=== PATIENT | male | born 1935 | race African-American/Black ===

== ENCOUNTER 2017-07-02 17:40 | Inpatient (IN) | payer OTHER ==
[~2017-07-02] VITALS: Ht 160 cm; Wt 40.9 kg
--- NOTE | ~2017-07-02 | EKG ---
[address] [address] ELECTROCARDIOGRAM REPORT Name: FRANCIA MERRILL R Room #: 435-P ADM IN M.R.#: [id number] Admission: 07/02/17 Attend Phys: Bebeto Brown MD Discharge: Date of : 37 Report #: [id number] THIS REPORT FOR: //name// [facility] ED Test Date: 2017-07-02 Test Time: 19:08:02 Pat Name: FRANCIA MERRILL Department: Room: [facility] Gender: M Unit Aid: SCOTTIE : 1935 Requested By: Lakeisha Oglesby Order Number: [id number] MD: Yair Barron Measurements Intervals [place] Rate: 92 P: 49 [place]: 123 QRS: 51 QRSD: 75 T: -83 QT: 372 QTc: 461 Interpretive Statements Sinus rhythm Atrial premature complex Abnormal R-wave progression, early transition Borderline repolarization abnormality Compared to ECG 05/20/2016 18:39:17 Atrial premature complex(es) now present Electronically Signed On 07-02-2017 21:40:51 STAND UP FORKLIFT OPERATOR by Yair Barron [email or web address] <ELECTRONICALLY SIGNED> By: aYir Barron MD 07/02/17 2140 07 07 Yair Barron MD /EPI
[~2017-07-02 17:40] MED LIST: ARICEPT 5 MG TAB5 MG PO; ARICEPT10 M1 PO; ASPIR 8181 MG PO; ASPIRIN81 M2 PO; ATORVASTATIN CA40 MG; ATORVASTATIN CA40 MG PO; FLOMAX0.4 MG PO; IRON325 PO; MELATONIN3 MG PO; METFORMIN HCL500 MG PO; NOVOLOG100 UNIT/1 SUBQ; RISPERDAL0.25 MG PO; TYLENOL325 MG PO; VITAMIN B-1100 M1 PO
[2017-07-02 17:41] VITALS: BP 121/75
[2017-07-02 18:00] LABS: HEMATOCRIT 45.7 % (42.0-52.0); HEMOGLOBIN 14.4 gm/dL (14.0-18.0); MCH 29.2 pg (26.0-34.0); MCHC 31.5 g/dL (28.0-37.0); MCV 92.7 fL (80.0-100.0); PLATELET COUNT 198 thou/uL (150-400); RBC 4.93 mil/uL (4.50-6.00); RDW 15.5 % (10.5-14.5); WBC 13.1 thou/uL (4.0-11.0)
[2017-07-02 18:04] LABS: MANUAL DIFF YES
[2017-07-02 18:05] LABS: URINE BLOOD 2+ (Negative); URINE COLOR YELLOW; URINE GLUCOSE-RANDOM* 1+ (Negative); URINE KETONES 1+ (Negative); URINE NITRITE NEGATIVE (Negative); URINE PROTEIN (DIPSTICK) TRACE (Negative); URINE SPECIFIC GRAVITY 1.025 (1.005-1.035); URINE UROBILINOGEN 0.2 E.U./dl (0.2-1.0)
[2017-07-02 18:09] LABS: ANION GAP 13 mmol/L (7-16); BUN 36 mg/dL (7-18); CALCIUM 10.4 mg/dL (8.5-10.1); CHLORIDE 120 mmol/L (98-107); CO2 22 mmol/L (21-32); CREATININE 1.8 mg/dL (0.7-1.3); GLUCOSE 351 mg/dL (74-106); POTASSIUM 5.2 mmol/L (3.5-5.1); SODIUM 155 mmol/L (136-145)
[2017-07-02 18:09] LABS: URINE BILIRUBIN NEGATIVE (Negative)
[2017-07-02 18:12] LABS: AMORPHOUS URATES Few /LPF (None Seen); CASTS None Seen /LPF (None Seen); SQUAMOUS None Seen /LPF (0-3); URINE WBC 0-5 Rare /HPF (0-5)
[2017-07-02 18:18] LABS: ALBUMIN 2.9 g/dL (3.4-5.0); ALKALINE PHOSPHATASE 162 U/L (46-116); SGOT 20 U/L (15-37); SGPT 10 U/L (30-65); TOTAL BILIRUBIN 0.4 mg/dL (<0.1-1.0); TOTAL PROTEIN 8.4 g/dL (6.4-8.2); TROPONIN-I < 0.04 ng/mL (<0.06)
[2017-07-02 18:22] LABS: TOTAL CELL COUNT 100
[2017-07-02 18:23] LABS: ABSOLUTE NEUTROPHILS 10.7 thou/uL (1.4-8.2)
[2017-07-02 19:32] VITALS: BP 132/74
[2017-07-02 20:20] VITALS: BP 118/70
[2017-07-02] MEDS ORDERED: DEPAKOTE ER500 MG PO (20:56)
[2017-07-02] MEDS ORDERED: LEVEMIR SUBQ (20:57)
[2017-07-02] MEDS ORDERED: REMERON15 MG PO (20:58)
[2017-07-02] MEDS ORDERED: NAMENDA 10 MG T10 MG PO (20:58)
[2017-07-02] MEDS ORDERED: NYAMYC15 GM PO (20:59)
[2017-07-02] MEDS ORDERED: PROVERA10 MG PO (20:59)
[2017-07-03 03:07] VITALS: BP 138/78
[2017-07-03 08:00] VITALS: BP 152/42
[2017-07-03 15:12] LABS: CALCIUM 9.1 mg/dL (8.5-10.1); CREATININE 1.2 mg/dL (0.7-1.3)
[2017-07-03 15:13] LABS: POTASSIUM 3.2 mmol/L (3.5-5.1)
[2017-07-03 16:00] VITALS: BP 121/83
[2017-07-03 20:09] VITALS: BP 127/62
[2017-07-04 03:59] VITALS: BP 144/98
[2017-07-04 08:00] VITALS: BP 139/89
[2017-07-04 11:59] LABS: CALCIUM 8.9 mg/dL (8.5-10.1); CREATININE 1.1 mg/dL (0.7-1.3); MAGNESIUM 2.5 mg/dL (1.8-2.4)
[2017-07-04 12:02] LABS: POTASSIUM 4.9 mmol/L (3.5-5.1)
[2017-07-04 16:00] VITALS: BP 143/68
[2017-07-05 04:52] VITALS: BP 109/55
[2017-07-05 07:47] VITALS: BP 122/70
[2017-07-05 11:17] LABS: HEMATOCRIT 42.4 % (42.0-52.0); HEMOGLOBIN 13.6 gm/dL (14.0-18.0); MCH 29.2 pg (26.0-34.0); MCV 91.5 fL (80.0-100.0); RBC 4.64 mil/uL (4.50-6.00); RDW 14.8 % (10.5-14.5); WBC 7.3 thou/uL (4.0-11.0)
[2017-07-05 11:24] LABS: CALCIUM 9.3 mg/dL (8.5-10.1); POTASSIUM 4.2 mmol/L (3.5-5.1)
[2017-07-05 19:20] VITALS: BP 109/59
[2017-07-06 04:44] VITALS: BP 126/65
[2017-07-06 06:32] LABS: CALCIUM 9.2 mg/dL (8.5-10.1); POTASSIUM 4.3 mmol/L (3.5-5.1)
[2017-07-06 08:00] VITALS: BP 126/67
[2017-07-06 16:11] VITALS: BP 135/62
[2017-07-06 19:13] VITALS: BP 135/61
[2017-07-07 04:23] VITALS: BP 118/54
[2017-07-07 04:54] LABS: HEMATOCRIT 39.7 % (42.0-52.0); HEMOGLOBIN 12.6 gm/dL (14.0-18.0); MCH 28.9 pg (26.0-34.0); MCHC 31.9 g/dL (28.0-37.0); MCV 90.7 fL (80.0-100.0); RBC 4.37 mil/uL (4.50-6.00); RDW 14.7 % (10.5-14.5); WBC 6.4 thou/uL (4.0-11.0)
[2017-07-07 04:59] LABS: CALCIUM 8.9 mg/dL (8.5-10.1); CREATININE 0.9 mg/dL (0.7-1.3); POTASSIUM 3.6 mmol/L (3.5-5.1)
[2017-07-07 07:40] VITALS: BP 129/68
[2017-07-07 08:30] VITALS: BP 135/63
[2017-07-07 16:31] VITALS: BP 108/60
[2017-07-07 21:01] VITALS: BP 94/74
[2017-07-08 06:12] VITALS: BP 141/77
[2017-07-08 06:35] LABS: CALCIUM 8.5 mg/dL (8.5-10.1); POTASSIUM 4.1 mmol/L (3.5-5.1)
[2017-07-08 08:00] VITALS: BP 118/46
[2017-07-08] MEDS ORDERED: NAMENDA 5 MG TAB5 M1 PO (09:17)
[2017-07-08] MEDS ORDERED: LANTUS SUBQ (09:18)
== END 2017-07-08 15:05 | DRG 70 ==
LOC: ER 17:40 → EROBS 19:03 → 4S 19:03
PROVIDERS: Internal Medicine; Physician Assistant
PROC: 02H633Z Insertion of Infusion Device into Right Atrium, Percutaneous Approach (ICD-10-PCS; principal; 2017-07-05)
DX: G93.41 Metabolic encephalopathy (principal); E43 Unspecified severe protein-calorie malnutrition; R65.11 Systemic inflammatory response syndrome (SIRS) of non-infectious origin with acute organ dysfunction; E87.0 Hyperosmolality and hypernatremia; N39.0 Urinary tract infection, site not specified; F03.91 Unspecified dementia, unspecified severity, with behavioral disturbance; Z68.1 Body mass index [BMI] 19.9 or less, adult; E11.9 Type 2 diabetes mellitus without complications; E78.5 Hyperlipidemia, unspecified; E86.9 Volume depletion, unspecified; E87.5 Hyperkalemia; R13.12 Dysphagia, oropharyngeal phase; Z79.899 Other long term (current) drug therapy; Z79.82 Long term (current) use of aspirin; Z28.21 Immunization not carried out because of patient refusal
CPT/HCPCS: 10100

== ENCOUNTER 2017-07-17 12:29 | Inpatient (IN) | payer OTHER ==
[~2017-07-17] VITALS: Ht 170.2 cm; Wt 48.9 kg
--- NOTE | ~2017-07-17 | O ---
[facility] [place] [address] OPERATIVE REPORT Name: FRANCIA MERRILL R Room #: 427-P [facility] IN M.R.#: [id number] Admission: 07/17/17 Attend Phys: Bebeto Brown MD Discharge: 07/28/17 Date of : 37 Report #: [id number] THIS REPORT FOR: //name// CC: CECILY Brown DATE OF SERVICE: 07/26/2017 PREOPERATIVE DIAGNOSIS: Left posterior auricular abscess. POSTOPERATIVE DIAGNOSIS: Left posterior auricular abscess. The abscess had superficial and a deep component. I am not sure the exact source. ANESTHESIA: General following the PEG tube placement. SURGEON: Trey Whitlock MD. COMPLICATIONS: None. ESTIMATED BLOOD LOSS: 2 mL. DESCRIPTION OF PROCEDURE: With the patient already sedated from his PEG tube, he was turned with the head towards the right. His oxygen tube is right over the area of the abscess. There is about a centimeter and a half bulge present that is fluctuant consistent with abscess. Apparently, this was red and warm yesterday, but it is not in that way today. This was prepped and draped in sterile fashion. 0.25% Marcaine was used to anesthetize the skin around this area. Abscess was incised longitudinally and purulent fluid was found. Cultures obtained. The superficial parts were opened up. I do not see a sebaceous cyst here. There is just soft tissue thickening. This was vacuumed when I probed the depths of the wound. There was moderate amount of pus found deeper and that pocket was opened up. It did eventually lead to a deep pocket that was a similar size about a centimeter and a half. This was opened up and evacuated. It is behind the angle of the mandible. I do not think this is an issue. I thought maybe is from dental issue, but he is edentulous and it is really behind the mandible. It is not quite towards the mastoid either. I did review the CT yesterday. I do not see any bony erosions or deformity. Could be a superficial abscess that subsequently went deeper. This was packed with Betadine-soaked gauze. 4 x 4 tape was applied. The patient was awakened and taken to recovery room. <ELECTRONICALLY SIGNED> By: Trey Whitlock MD 08/20/17 1513 1707 1803 Trey Whitlock MD /nt
--- NOTE | ~2017-07-17 | HC ---
[facility] [place] [address] CONSULTATION Name: FRANCIA MERRILL R Room #: 427-P [facility] IN M.R.#: [id number] Admission: 07/17/17 Attend Phys: Bebeto Brown MD Discharge: Date of : 36 Report #: [id number] THIS REPORT FOR: //name// CC: Bebeto Brown TYPE OF REPORT: Infectious diseases consultation. REASON FOR CONSULTATION: I was asked to evaluate concerning left mastoid swelling and tenderness. HISTORY OF PRESENT ILLNESS: The patient is an 81-year-old shelter resident with a history of dementia, diabetes and congestive heart failure. He does have some aphasia issues and dysphagia or problems that have limited his oral intake. He has been hospitalized several times with dehydration. He presents on 07/17/2017 with similar symptoms. He was hyponatremic and dehydrated. He has received IV fluids and nutritional support. He was scheduled to have a PEG tube placed today. Dr. Bourgeois, when in the preoperative area, evaluated the patient and she found swelling and erythema over the mastoid on the left. She was concerned about uncontrolled infection and therefore, abandoned the procedure today to be scheduled hopefully tomorrow. On review of his admission, he had temperature up to 101.5 on the 21 of July. Subsequently, he has had temperature 99-100 degrees. He was treated for urinary tract infection with ceftriaxone. The patient was unable to give any further details of his history. ALLERGIES: None known. MEDICATIONS: As noted on his MAR including ceftriaxone that was initiated at the time of admission. PAST MEDICAL HISTORY: Diabetes, dementia, congestive heart failure, anemia and dehydration. FAMILY HISTORY: Noncontributory. SOCIAL HISTORY: Nonsmoker. No significant alcohol intake. Resides in a shelter. REVIEW OF SYSTEMS: The patient was unable to give any details of his review of systems. PHYSICAL EXAMINATION: VITAL SIGNS: Afebrile and hemodynamically stable. GENERAL: The patient was in the position. Would awaken and answer yes or no, but would not give any further responses. HEENT: Left mastoid region posterior auricular had a firm tender nodule with surrounding erythema. This was mobile. The mastoid bone did not appear soft. No pain to his pinna. Mouth: Dry edentulous. [facility] [address] [place] [address] CONSULTATION Name: FRANCIA MERRILL Room #: 427-P ADM IN .R.#: [id number] Admission: 07/17/17 Attend Phys: Bebeto Brown MD Discharge: Date of : 37 Report #: [id number] NECK: Supple. LUNGS: Clear. HEART: Regular, without murmur. ABDOMEN: Soft and nontender. He had contractures of both lower extremities. LABORATORY STUDIES: Sodium 141, potassium 4.2, bicarbonate 27 and creatinine 0.7. Hemoglobin 9.9; white count 8.2 and platelet count 232,000. Urinalysis positive for wbc's and bacteria. Urine culture, pansensitive Pseudomonas aeruginosa. Blood cultures negative. RADIOLOGICAL DATA: Chest x-ray clear. IMPRESSION AND PLAN: An 81-year-old shelter patient with dementia and malnutrition and now with swelling and tenderness over the left mastoid. I suspect this is soft tissue infection, possibly an infected sebaceous cyst, although I cannot completely rule out underlying mastoid disease that may have eroded. We would recommend CT scan of the sinuses. We will change ceftriaxone to Zosyn to cover the pseudomonas as well as possible healthcare-associated head and neck infection. We will also add vancomycin for staphylococcal coverage. Following a CT scan if there is no evidence of mastoid disease, we will have General Surgery incised and drained this area. If this is an extension of mastoid disease, we will have ENT assist. <ELECTRONICALLY SIGNED> By: David Sadler MD 07/25/17 1452 2112 2249 David Sadler MD /nt
--- NOTE | ~2017-07-17 | EKG ---
[place] [address] [facility] [place] [address] ELECTROCARDIOGRAM REPORT Name: FRANCIA MERRILL R Room #: 170-2 ADM IN M.R.#: [id number] Admission: 07/17/17 Attend Phys: Beebto Brown MD Discharge: Date of : 36 Report #: [id number] THIS REPORT FOR: //name// [facility] ED Test Date: 2017-07-17 Test Time: 12:48:33 Pat Name: FRANCIA MERRILL Department: Room: 170 Gender: M Incident Response Consultant: JENNY : 1935 Requested By: Lakeisha Oglesby Order Number: [id number] MD: Measurements Intervals [place] Rate: 93 P: 68 OR: 124 QRS: 60 QRSD: 78 T: 269 QT: 463 QTc: 577 Interpretive Statements Sinus rhythm Repol abnrm suggests ischemia, diffuse leads Prolonged QT interval Baseline wander in lead(s) V4 No previous ECG available for comparison [email or web address] By: 1248 1248 Epiphany Epiphany, /EPI
[~2017-07-17 12:29] MED LIST changes: +DEPAKOTE ER500 MG PO; +LANTUS SUBQ; +LEVEMIR SUBQ; +NAMENDA 10 MG T10 MG PO; +NAMENDA 5 MG TAB5 M1 PO; +NYAMYC15 GM PO; +PROVERA10 MG PO; +REMERON15 MG PO
[2017-07-17 12:30] VITALS: BP 105/72
[2017-07-17 13:14] LABS: ABSOLUTE NEUTROPHILS 11.5 thou/uL (1.4-8.2); BASOPHILS 0.7 % (0.0-2.0); EOSINOPHILS 0.1 % (0.0-3.0); HEMATOCRIT 43.2 % (42.0-52.0); HEMOGLOBIN 13.9 gm/dL (14.0-18.0); LYMPHOCYTES 10.3 % (24.0-44.0); MCH 29.4 pg (26.0-34.0); MCHC 32.1 g/dL (28.0-37.0); MCV 91.6 fL (80.0-100.0); MONOCYTES 4.3 % (1.0-8.0); PLATELET COUNT 318 thou/uL (150-400); POLYS 84.6 % (36.0-66.0); RBC 4.72 mil/uL (4.50-6.00); RDW 15.6 % (10.5-14.5); WBC 13.6 thou/uL (4.0-11.0)
[2017-07-17 13:18] LABS: URINE BLOOD 2+ (Negative); URINE CLARITY SL CLOUDY; URINE COLOR YELLOW; URINE GLUCOSE-RANDOM* 1+ (Negative); URINE KETONES 1+ (Negative); URINE LEUKOCYTES NEGATIVE (Negative); URINE NITRITE NEGATIVE (Negative); URINE PROTEIN (DIPSTICK) 1+ (Negative); URINE UROBILINOGEN 0.2 E.U./dl (0.2-1.0)
[2017-07-17 13:23] LABS: ICTOTEST (BILI CONFIRMATORY) Negative (Negative); URINE BILIRUBIN NEGATIVE (Negative)
[2017-07-17 13:33] LABS: MUCUS 4-6 Moderate strn/LPF (None Seen)
[2017-07-17 13:34] LABS: BACTERIA 1-9 Few /HPF (None Seen); CRYSTALS None Seen /LPF (None Seen); HYALINE CASTS 4-10 Moderate /LPF (None Seen); SQUAMOUS 0-3 Few /LPF (0-3); URINE WBC 0-5 Rare /HPF (0-5)
[2017-07-17] MEDS ORDERED: NOVOLOG100 UNIT/1 SUBQ (14:06)
[2017-07-17 14:09] LABS: CALCIUM 9.9 mg/dL (8.5-10.1); CREATININE 1.2 mg/dL (0.7-1.3); POTASSIUM 3.1 mmol/L (3.5-5.1)
[2017-07-17 14:23] LABS: TOTAL BILIRUBIN 0.2 mg/dL (<0.1-1.0); TOTAL PROTEIN 6.8 g/dL (6.4-8.2); TROPONIN-I 0.05 ng/mL (<0.06)
[2017-07-17 16:21] VITALS: BP 124/59
[2017-07-17 18:49] VITALS: BP 121/67
[2017-07-18 04:57] VITALS: BP 119/55
[2017-07-18 06:56] LABS: CREATININE 1.1 mg/dL (0.7-1.3); POTASSIUM 3.5 mmol/L (3.5-5.1)
[2017-07-18 07:15] VITALS: BP 95/70
[2017-07-18 15:10] VITALS: BP 116/54
[2017-07-18 19:32] VITALS: BP 114/63
[2017-07-19 04:26] VITALS: BP 116/66
[2017-07-19 07:48] LABS: HEMATOCRIT 34.4 % (42.0-52.0); MCV 90.6 fL (80.0-100.0); RBC 3.79 mil/uL (4.50-6.00); RDW 15.2 % (10.5-14.5); WBC 10.1 thou/uL (4.0-11.0)
[2017-07-19 07:55] LABS: CALCIUM 8.9 mg/dL (8.5-10.1); POTASSIUM 3.1 mmol/L (3.5-5.1)
[2017-07-19 08:00] VITALS: BP 143/63
[2017-07-19 16:00] VITALS: BP 122/63
[2017-07-19 20:00] VITALS: BP 137/74
[2017-07-20 05:00] VITALS: BP 124/67
[2017-07-20 06:11] LABS: CALCIUM 8.6 mg/dL (8.5-10.1); CREATININE 0.9 mg/dL (0.7-1.3); POTASSIUM 3.1 mmol/L (3.5-5.1)
[2017-07-20 08:47] VITALS: BP 132/73
[2017-07-20 16:05] VITALS: BP 121/68
[2017-07-20 20:00] VITALS: BP 126/67
[2017-07-21 03:59] VITALS: BP 135/79
[2017-07-21 04:55] LABS: CREATININE 0.9 mg/dL (0.7-1.3); POTASSIUM 3.4 mmol/L (3.5-5.1)
[2017-07-21 08:55] VITALS: BP 121/66
[2017-07-21 15:30] VITALS: BP 128/73
[2017-07-21 17:29] LABS: URINE BILIRUBIN NEGATIVE (Negative); URINE BLOOD 3+ (Negative); URINE CLARITY CLOUDY; URINE COLOR YELLOW; URINE GLUCOSE-RANDOM* NEGATIVE (Negative); URINE KETONES NEGATIVE (Negative); URINE LEUKOCYTES-REFLEX 3+ (Negative); URINE NITRITE-REFLEX POSITIVE (Negative); URINE PROTEIN (DIPSTICK) 1+ (Negative)
[2017-07-21 17:58] LABS: BACTERIA-REFLEX >30 Many /HPF (None Seen); SQUAMOUS None Seen /LPF (0-3); URINE RBC >20 Many /HPF (0-2); URINE WBC-REFLEX >25 Many /HPF (0-5)
[2017-07-21 17:59] LABS: AMORPHOUS URATES Few /LPF (None Seen); CASTS None Seen /LPF (None Seen)
[2017-07-21 19:10] VITALS: BP 132/61
[2017-07-21 20:15] LABS: BE(vivo) -0.4 mmol/L (-2 to +3); HCO3 21.8 mmol/L (22.0-26.0); PCO2 28.2 mmHg (35.0-45.0); PO2 79.9 mmHg (80.0-100.0); pH 7.507 (7.360-7.450); sO2 96.9 % (92.0-98.0)
[2017-07-22 04:08] VITALS: BP 117/69
[2017-07-22 06:59] LABS: CALCIUM 9.1 mg/dL (8.5-10.1); CREATININE 0.9 mg/dL (0.7-1.3)
[2017-07-22 07:03] LABS: ABSOLUTE NEUTROPHILS 9.8 thou/uL (1.4-8.2); BASOPHILS 0.8 % (0.0-2.0); EOSINOPHILS 1.2 % (0.0-3.0); HEMATOCRIT 35.7 % (42.0-52.0); HEMOGLOBIN 11.4 gm/dL (14.0-18.0); LYMPHOCYTES 10.8 % (24.0-44.0); MCHC 31.9 g/dL (28.0-37.0); MCV 90.8 fL (80.0-100.0); MONOCYTES 6.6 % (1.0-8.0); POLYS 80.6 % (36.0-66.0); RBC 3.93 mil/uL (4.50-6.00); RDW 15.4 % (10.5-14.5); WBC 13.3 thou/uL (4.0-11.0)
[2017-07-22 07:09] LABS: APTT 26.4 Seconds (24.5-32.8); INR 1.2; PROTIME 12.6 Seconds (9.3-11.4)
[2017-07-22 09:41] VITALS: BP 122/53
[2017-07-22 12:08] LABS: PLATELET COUNT 202 thou/uL (150-400)
[2017-07-22 17:00] VITALS: BP 118/68
[2017-07-22 19:32] VITALS: BP 111/56
[2017-07-23 04:02] VITALS: BP 130/74
[2017-07-23 06:31] LABS: CALCIUM 8.5 mg/dL (8.5-10.1); CREATININE 0.8 mg/dL (0.7-1.3)
[2017-07-23 07:16] VITALS: BP 122/66
[2017-07-23 15:25] VITALS: BP 137/94
[2017-07-23 20:45] VITALS: BP 124/65
[2017-07-24 04:23] VITALS: BP 125/65
[2017-07-24 07:34] LABS: HEMATOCRIT 30.2 % (42.0-52.0); HEMOGLOBIN 9.9 gm/dL (14.0-18.0); MCH 28.8 pg (26.0-34.0); MCHC 32.7 g/dL (28.0-37.0); MCV 87.9 fL (80.0-100.0); RBC 3.44 mil/uL (4.50-6.00); WBC 8.2 thou/uL (4.0-11.0)
[2017-07-24 07:45] LABS: CALCIUM 8.3 mg/dL (8.5-10.1); CREATININE 0.7 mg/dL (0.7-1.3); POTASSIUM 4.2 mmol/L (3.5-5.1)
[2017-07-24 08:27] VITALS: BP 144/74
[2017-07-24 16:00] VITALS: BP 127/63
[2017-07-24 19:18] VITALS: BP 120/67
[2017-07-25] VITALS (8 sets, daily range): BP systolic 106–126; BP diastolic 62–84
[2017-07-25 15:50] LABS: HEMATOCRIT 30.2 % (42.0-52.0); MCH 29.5 pg (26.0-34.0); MCHC 33.2 g/dL (28.0-37.0); RBC 3.4 mil/uL (4.50-6.00); RDW 15.6 % (10.5-14.5); WBC 6.9 thou/uL (4.0-11.0)
[2017-07-25 16:03] LABS: CALCIUM 8.5 mg/dL (8.5-10.1); CREATININE 0.9 mg/dL (0.7-1.3); POTASSIUM 4.4 mmol/L (3.5-5.1)
[2017-07-26 04:30] VITALS: BP 147/57
[2017-07-26 07:24] VITALS: BP 104/64
[2017-07-26 16:57] VITALS: BP 106/44
[2017-07-26 19:24] VITALS: BP 134/49
[2017-07-27 05:00] VITALS: BP 134/67
[2017-07-27 08:00] VITALS: BP 119/63
[2017-07-27 16:00] VITALS: BP 134/71
[2017-07-27 22:00] VITALS: BP 153/82
[2017-07-28 04:30] VITALS: BP 112/52
[2017-07-28 08:30] VITALS: BP 127/58
[2017-07-28] MEDS ORDERED: LEVAQUIN 250 M250 MG PER TUBE (10:19)
[2017-07-28] MEDS ORDERED: NOVOLIN N100 UNIT/3 SUBQ (10:24)
[2017-07-28] MEDS ORDERED: GLUCAGON HCL1 MG IM (10:25)
== END 2017-07-28 12:27 | DRG 871 ==
LOC: ER 12:29 → 4E 14:26 → EROBS 14:26 → 4E 17:49
PROVIDERS: Internal Medicine; Internal Medicine Gastroenterology; Physician Assistant
PROC: 0DH63UZ Insertion of Feeding Device into Stomach, Percutaneous Approach (ICD-10-PCS; principal; 2017-07-25)
PROC: 099 Ear, Nose, Sinus, Drainage (ICD-10-PCS; 2017-07-26)
DX: A41.9 Sepsis, unspecified organism (principal); G93.41 Metabolic encephalopathy; E43 Unspecified severe protein-calorie malnutrition; E87.0 Hyperosmolality and hypernatremia; Z68.1 Body mass index [BMI] 19.9 or less, adult; N39.0 Urinary tract infection, site not specified; H70.002 Acute mastoiditis without complications, left ear; H60.02 Abscess of left external ear; B95.61 Methicillin susceptible Staphylococcus aureus infection as the cause of diseases classified elsewhere; E11.65 Type 2 diabetes mellitus with hyperglycemia; E87.6 Hypokalemia; B96.5 Pseudomonas (aeruginosa) (mallei) (pseudomallei) as the cause of diseases classified elsewhere; R13.12 Dysphagia, oropharyngeal phase; R62.7 Adult failure to thrive; E86.0 Dehydration; E78.5 Hyperlipidemia, unspecified; I50.9 Heart failure, unspecified; F03.90 Unspecified dementia, unspecified severity, without behavioral disturbance, psychotic disturbance, mood disturbance, and anxiety; Z79.4 Long term (current) use of insulin; Z79.82 Long term (current) use of aspirin; Z79.899 Other long term (current) drug therapy
CPT/HCPCS: 10183; 50101; 50386; 62110; 62900; 70005

== ENCOUNTER 2017-07-28 18:45 | Inpatient (IN) | payer OTHER ==
[~2017-07-28] VITALS: Ht 162.6 cm; Wt 56.2 kg
--- NOTE | ~2017-07-28 | EKG ---
[place] [address] [facility] [employer] [place] [address] ELECTROCARDIOGRAM REPORT Name: FRANCIA MERRILL Room #: 170-3 ADM IN M.R.#: [id number] Admission: 07/28/17 Attend Phys: Bebeto Brown MD Discharge: Date of : 36 Report #: [id number] THIS REPORT FOR: //name// [facility] ED Test Date: 2017-07-28 Test Time: 19:01:21 Pat Name: FRANCIA MERRILL Department: Room: 170 Gender: M Simulation Analyst: MZOOK : 1935 Requested By: Raghu Darnell Order Number: [id number] MD: Yair Barron Measurements Intervals [place] Rate: 115 P: 65 [place]: 131 QRS: 66 QRSD: 90 T: -90 QT: 327 QTc: 453 Interpretive Statements Sinus tachycardia Ventricular trigeminy Nonspecific T abnormalities, lateral leads Compared to ECG 07/17/2017 12:48:33 Ventricular premature complex(es) now present T-wave abnormality now present Sinus rhythm no longer present Early repolarization no longer present Possible ischemia no longer present Electronically Signed On 07-28-2017 23:28:10 BEAM DYER OPERATOR by Yair Barron [email or web address] <ELECTRONICALLY SIGNED> By: Yair Barron MD 07/28/17 2328 190 190 Yair Barron MD /EPI
--- NOTE | ~2017-07-28 | P ---
[facility] [place] [address] PROCEDURE REPORT Name: FRANCIA MERRILL R Room #: 246-P ADM IN M.R.#: [id number] Admission: 07/28/17 Attend Phys: Bebteo Brown MD Discharge: Date of : 37 Report #: [id number] THIS REPORT FOR: //name// CC: Bebeto Brown MD DATE OF SERVICE: 07/29/2017 PROCEDURE: Bronchoscopy. REFERRING PROVIDER: Bebeto Brown MD. INDICATION FOR PROCEDURE: Mucus plugging, poor airway clearance. The patient with pneumonia and dementia. ASA classification class 3. PROCEDURE NOTATION: No family immediately available despite attempts to contact, the patient unable to give any consent. Implied consent utilized given the patient's severity of illness. The patient was given 4% lidocaine nebulized to anesthetize the upper respiratory tract. Once complete, he received conscious sedation for a total of 2 mg of Versed required for adequate sedation. Once accomplished, bronchoscope was passed through an oral biteblock. The vocal cords were visualized. The patient was on a nonrebreather mask during the procedure. A 1% lidocaine was instilled in the vocal cords for topical anesthesia. Of note, significant thick white secretion was noted on the vocal cords. Bronchoscope was then passed in the trachea, 1% lidocaine was instilled in the tracheobronchial tree bilaterally for topical anesthesia. Once complete, airways were surveyed. FINDINGS: Mainstem, lobar, segmental and subsegmental bronchi were explored. There was diffuse thick white to martinez secretions noted throughout. Some of these occluded the bronchoscope and required the bronchoscope to be removed to purge the channel that had been plugged. Bronchoscope was then easily reinserted where several aliquots of 20 mL of saline were flushed into an area of the left lower lobe that was completely occluded. Thick mucus plugs and bronchial casts were aspirated throughout, predominantly on the left side. The airways were patent with no significant mucus plug at the end of procedure. Upper airway was also cleansed with no significant secretions noted at the end of procedure. The patient tolerated it well. No noted complications. Did receive some aerosol treatments post procedure and given his tachypnea pre and postprocedure, BiPAP was applied, will need a higher level of care from continued monitoring post procedure given his underlying illness. <ELECTRONICALLY SIGNED> By: Boom Rockwell MD 08/13/17 1825 1210 1330 Boom Rockwell MD /nt
--- NOTE | ~2017-07-28 | EKG ---
[address] [address] ELECTROCARDIOGRAM REPORT Name: FRANCIA MERRILL Room #: 170-3 ADM IN M.R.#: [id number] Admission: 07/28/17 Attend Phys: Bebeto Brown MD Discharge: Date of : 37 Report #: [id number] THIS REPORT FOR: //name// [facility] ED Test Date: 2017-07-28 Test Time: 21:03:58 Pat Name: FRANCIA MERRILL Department: Room: 170 Gender: M Beaming Machine Operator: MZOOK : 1935 Requested By: Raghu Darnell Order Number: [id number] MD: Yair Barron Measurements Intervals [place] Rate: 123 P: 59 [place]: 118 QRS: 41 QRSD: 87 T: 29 QT: 322 QTc: 461 Interpretive Statements Sinus tachycardia Compared to ECG 07/17/2017 12:48:33 Sinus rhythm no longer present Early repolarization no longer present Possible ischemia no longer present Electronically Signed On 07-28-2017 23:29:19 AUDIO TAPE LIBRARIAN by Yair Barron [email or web address] <ELECTRONICALLY SIGNED> By: Yair Barron MD 07/28/17 2329 02 02 Yair Barron MD /EPI
--- NOTE | ~2017-07-28 | P ---
[facility] [place] [address] PROCEDURE REPORT Name: FRANCIA MERRILL R Room #: 434-P DIS IN M.R.#: [id number] Admission: 07/28/17 Attend Phys: Bebeto Brown MD Discharge: 08/19/17 Date of : 37 Report #: [id number] THIS REPORT FOR: //name// CC: Bebeto Brown DATE OF SERVICE: 08/05/2017 PROCEDURE: Fiberoptic bronchoscopy with clearance of airway secretions. ASA classification class 3. PROCEDURE NOTATION: The patient unable to give any consent and implied consent was obtained. This patient had mucus plugging and difficulty with airway secretions. The patient received 2 mg of Versed to provide adequate sedation for procedure. Once accomplished, the bronchoscope was passed through an oral biteblock until the vocal cord was visualized. Significant secretions on the trachea. Lidocaine 1% was instilled in the trachea and vocal cords for topical anesthesia. Bronchoscope was then passed in the trachea and additional 1% lidocaine was instilled to provide topical anesthesia. Significant secretions noted throughout. These were purged and aspirated using intermittent 20 mL saline aliquots. Significant mucus plugging throughout, including in the trachea having significant thick secretions. These were purged and aspirated. The patient tolerated well. No noted complications. IMPRESSION: 1. Poor airway clearance. 2. Extensive mucus plugging. RECOMMENDATIONS: 1. Continue to follow. 2. Continue with aggressive airway clearance. 3. The patient may need intubation for further management. <ELECTRONICALLY SIGNED> By: Boom Rockwell MD 10/20/17 0909 1644 2300 Boom Rockwell MD /nt
--- NOTE | ~2017-07-28 | HC ---
[facility] [place] [address] CONSULTATION Name: FRANCIA MERRILL R Room #: 246-P ADM IN M.R.#: [id number] Admission: 07/28/17 Attend Phys: Bebeto Brown MD Discharge: Date of : 37 Report #: [id number] THIS REPORT FOR: //name// CC: CECILY Brown MD DATE OF SERVICE: 07/29/2017 PULMONARY CRITICAL CARE CONSULTATION REFERRING PROVIDER: Dr. Bebeto Brown. REASON FOR CONSULTATION: Pneumonia, hypoxemic respiratory failure. CHIEF COMPLAINT: Shortness of breath. HISTORY OF PRESENT ILLNESS: Our group was asked to evaluate the patient in consultation while hospitalized at [facility]. The patient is unable to give any history due to poor mentation and underlying dementia. An 81-year-old just recently hospitalized and had a PEG tube placed. Apparently, after being several hours back in his detention facility at [facility], the patient developed respiratory distress and presented to the Emergency Department and was found to have bibasilar infiltrates, small pleural effusions, what may be a left lower lobe mucus plug and extensive secretions in his airway noted yesterday evening and subsequently, had a CT chest PE protocol, which showed these findings. Inability to adequately aspirate these secretions and escalation in oxygen requirements prompted our consultation. The patient is awake, tachypneic, but unable to really give any further history. Attempts to call daughter unavailable. Records reviewed and discussed with healthcare providers to get additional history. ALLERGIES: None known. PAST MEDICAL HISTORY: 1. Dementia. 2. Diabetes mellitus type 2. 3. History of dysphagia. 4. Recent urinary tract infection. 5. Hyperlipidemia. 6. Congestive heart failure, not specified in the records. MEDICATIONS: Included Levaquin, insulin, Namenda and Glucagon p.r.n. SOCIAL HISTORY: Unobtainable. Currently resides as mentioned in the HPI. [facility] [address] [place] [address] CONSULTATION Name: FRANCIA MERRILL Room #: 246-P [facility] IN [facility].#: [id number] Admission: 07/28/17 Attend Phys: Bebeto Brown MD Discharge: Date of : 36 Report #: [id number] FAMILY HISTORY: Unobtainable. REVIEW OF SYSTEMS: Unobtainable due to current status. PHYSICAL EXAMINATION: VITAL SIGNS: Temperature 39.6, pulse 110, respiratory rate 34 and blood pressure 103/51. GENERAL: This is a thin, cachectic, elderly male in obvious respiratory difficulties. ENT: Dry oropharynx, edentulous. NECK: Supple. No lymphadenopathy. LUNGS: Coarse rhonchi heard throughout. CARDIOVASCULAR: Heart is tachycardic, but regular. No murmurs. ABDOMEN: Soft, flat and nontender. PEG tube in place, with no surrounding erythema. EXTREMITIES: With muscular atrophy. No edema. Right upper extremity appears non-interactive even with deep stimuli. However, the rest of the extremities move spontaneously and respond to deep pain. NEUROLOGIC: The patient awake, but not interactive or responsive. LABORATORY DATA: CT scan as described in the HPI. White blood cell count 11,000, hemoglobin 10, hematocrit 32 and platelet count 337,000. Sodium 143, potassium 3.7, chloride 106, bicarbonate 28, BUN 14, creatinine 0.8 and glucose 143. No liver enzymes. Lactate was canceled. Arterial blood gas on nonrebreather mask done last evening revealed pH of 7.51, pCO2 of 32, pO2 of 61 and bicarbonate 25. IMPRESSION: 1. Multilobar pneumonia, likely aspiration probably from tube feeds and poor airway clearance, with ongoing hypoxemic respiratory failure. We will need assistance with airway clearance. We will add bronchodilators and we will attempt bronchoscopy today. Unable to get family available for emergent consent; we will need a substituted consent/emergent need for airway clearance. 2. Dementia. 3. Dysphagia. PLAN: As outlined above. Additional recommendations to follow. Please see orders. Discussed with all healthcare providers, including respiratory therapy and nursing. Total critical care time 40 minutes, not including any procedures. <ELECTRONICALLY SIGNED> By: Boom Rockwell MD 08/13/17 1824 1123 1246 Boom Rockwell MD /nt
--- NOTE | ~2017-07-28 | HC ---
[facility] [place] [address] CONSULTATION Name: FRANCIA MERRILL R Room #: 246-P ADM IN M.R.#: [id number] Admission: 07/28/17 Attend Phys: Bebeto Brown MD Discharge: Date of : 37 Report #: [id number] THIS REPORT FOR: //name// CC: Bebeto Brown DATE OF SERVICE: 07/29/2017 REASON FOR CONSULTATION: I was asked to evaluate concerning healthcare-associated pneumonia. HISTORY OF PRESENT ILLNESS: The patient is an 81-year-old who I evaluated earlier in the week with left posterior auricular abscess. This was incised and drained by Dr. Trey Whitlock with growth of methicillin-susceptible Staph aureus. During this hospitalization, he underwent a PEG tube placement due to recurrent aspiration risk and failure to thrive. He was also found to have pseudomonas urinary tract infection. He was placed on Levaquin to finish his course of treatment. Following discharge yesterday morning, he returned to the Emergency Room with altered mental status. He was tachycardic and hypoxic. He was found to have bilateral infiltrates. Underwent bronchoscopy, which showed extensive mucus plugging. Secretions were suctioned by Dr. Rockwell. He has had fever and now is on a BiPAP mask. There was concern for tube feeding aspiration. The patient is a detention resident with underlying dementia, diabetes, congestive heart failure, aphasia and right hemiparesis. He has had recurring hospitalizations for dehydration. PEG tube was successfully placed last week. ALLERGIES: None. MEDICATIONS: As noted on his SEP. He was given vancomycin and Zosyn this morning. PAST MEDICAL HISTORY, FAMILY HISTORY, AND SOCIAL HISTORY: Unchanged from his history and physical and that of his previous consultation on 07/24/2017. REVIEW OF SYSTEMS: The patient is unable to give any details of his history. PHYSICAL EXAMINATION: VITAL SIGNS: Maximum temperature was 103.3 degrees axillary earlier this morning. Blood pressure is 95/54, heart rate 100. GENERAL: He is on BiPAP. He was a bit anxious. SKIN: Remarkable for left posterior auricular incision with minimal drainage. There is no fluctuance. LYMPH: Unremarkable. MOUTH: Unremarkable. NECK: Supple. LUNGS: Coarse breath sounds bilaterally. [facility] [address] [place] [address] CONSULTATION Name: FRANCIA MERRILL R Room #: 246-P [facility] IN R.#: [id number] Admission: 07/28/17 Attend Phys: Bebeto Brown MD Discharge: Date of : 37 Report #: [id number] HEART: Regular without murmur. He was tachycardic. ABDOMEN: Soft. PEG site was unremarkable. EXTREMITIES: Unremarkable. Right hemiparesis. LABORATORY STUDIES: Sodium 143, potassium 3.7, bicarb of 28, creatinine 0.8. Hemoglobin 10.2, WBC 10.7, platelet count 337,000. Differential, 87% segs, 3% bands. Urinalysis unremarkable. Blood cultures and bronchoscopy cultures are pending. IMPRESSION: An 81-year-old with tube feeding aspiration and pneumonia with respiratory failure, tachycardia, and sepsis. He has decreased mental status. RECOMMENDATIONS: We will continue with broad-spectrum antibiotic coverage for pseudomonal coverage as well as Staph aureus coverage. I have discussed with nursing staff at the bedside. He will require Intensive Care Unit treatment with IV fluids and respiratory care. We will follow vancomycin level. <ELECTRONICALLY SIGNED> By: David Sadler MD 07/30/17 1037 1513 1752 David Sadler MD /nt
--- NOTE | ~2017-07-28 | P ---
[facility] [place] [address] PROCEDURE REPORT Name: FRANCIA MERRILL R Room #: 246-P [facility] M.R.#: [id number] Admission: 07/28/17 Attend Phys: Bebeto Brown MD Discharge: Date of : 37 Report #: [id number] THIS REPORT FOR: //name// CC: Bebeto Brown DATE OF SERVICE: 08/06/2017 PROCEDURE: Emergent intubation. INDICATION: Hypoxemic respiratory failure and upper airway obstruction, poor airway clearance. PROCEDURE NOTATION: Requested urgently to evaluate this patient by Dr. David Sadler. The patient had been in respiratory distress this morning, placed back on BiPAP. The patient was still struggling and poorly responsive on the BiPAP. The patient was subsequently positioned in adequate position for intubation. His tube feeds were turned off. The patient was given 24 mg of etomidate for adequate relaxation and sedation. Once accomplished, using a MAC 4 blade, a grade 1 view of the vocal cords was obtained. There is significant very thick upper airway exudative material that had to be cleansed and removed using a Yankauer suction aggressively to allow adequate visualization of the vocal cords. This was likely providing some upper airway obstruction that was limiting ventilation. An 8.0 endotracheal tube was easily inserted to 24 cm at the gums. Positive easy cap color change and bilateral breath sounds are noted. Post-procedure, chest x-ray confirmed good position. This was secured in place. Thick martinez secretions were aspirated from the airway and significant coarse rhonchi were noted after intubation consistent with the patient's inability to clear secretions. The patient tolerated the procedure. No desaturations during procedure. No difficulties. <ELECTRONICALLY SIGNED> By: Boom Rockwell MD 08/13/17 1823 [id number] Boom Rockwell MD /nt
[~2017-07-28 18:45] MED LIST changes: +GLUCAGON HCL1 MG IM; +LEVAQUIN 250 M250 MG PER TUBE; +NOVOLIN N100 UNIT/3 SUBQ
[2017-07-28 18:49] VITALS: BP 103/42
[2017-07-28 19:21] LABS: HEMATOCRIT 31.7 % (42.0-52.0); HEMOGLOBIN 10.2 gm/dL (14.0-18.0); MCH 28.6 pg (26.0-34.0); MCHC 32.1 g/dL (28.0-37.0); MCV 89.2 fL (80.0-100.0); PLATELET COUNT 337 thou/uL (150-400); RBC 3.56 mil/uL (4.50-6.00); RDW 15.8 % (10.5-14.5); WBC 10.7 thou/uL (4.0-11.0)
[2017-07-28 19:28] LABS: BE(vivo) 1.9 mmol/L (-2 to +3); HCO3 24.8 mmol/L (22.0-26.0); PCO2 32.1 mmHg (35.0-45.0); PO2 61.2 mmHg (80.0-100.0); pH 7.505 (7.360-7.450); sO2 93.7 % (92.0-98.0)
[2017-07-28 19:28] LABS: CALCIUM 8.7 mg/dL (8.5-10.1); CREATININE 0.8 mg/dL (0.7-1.3); POTASSIUM 3.7 mmol/L (3.5-5.1)
[2017-07-28 20:05] LABS: URINE BILIRUBIN NEGATIVE (Negative); URINE BLOOD 1+ (Negative); URINE CLARITY CLEAR; URINE COLOR YELLOW; URINE GLUCOSE-RANDOM* NEGATIVE (Negative); URINE KETONES NEGATIVE (Negative); URINE LEUKOCYTES-REFLEX NEGATIVE (Negative); URINE NITRITE-REFLEX NEGATIVE (Negative); URINE PROTEIN (DIPSTICK) 1+ (Negative); URINE UROBILINOGEN 0.2 E.U./dl (0.2-1.0)
[2017-07-28 20:15] LABS: ABSOLUTE NEUTROPHILS 9.6 thou/uL (1.4-8.2)
[2017-07-28 20:17] LABS: SQUAMOUS None Seen /LPF (0-3)
[2017-07-28 20:18] LABS: BACTERIA-REFLEX 1-9 Few /HPF (None Seen); CASTS None Seen /LPF (None Seen); CRYSTALS None Seen /LPF (None Seen); URINE RBC 3-10 Few /HPF (0-2); URINE WBC-REFLEX 0-5 Rare /HPF (0-5)
[2017-07-29 10:11] VITALS: BP 103/51
[2017-07-29 14:30] VITALS: BP 98/58
[2017-07-29 15:40] VITALS: BP 95/54
[2017-07-29 16:19] LABS: BE(vivo) -1.6 mmol/L (-2 to +3); PCO2 27.6 mmHg (35.0-45.0); PO2 109.9 mmHg (80.0-100.0); pH 7.499 (7.360-7.450); sO2 98.4 % (92.0-98.0)
[2017-07-29 16:29] VITALS: BP 100/58
[2017-07-29 18:01] LABS: HEMATOCRIT 25.6 % (42.0-52.0); HEMOGLOBIN 8.4 gm/dL (14.0-18.0); MCH 29.1 pg (26.0-34.0); MCHC 32.7 g/dL (28.0-37.0); RBC 2.88 mil/uL (4.50-6.00); RDW 15.7 % (10.5-14.5); WBC 14.5 thou/uL (4.0-11.0)
[2017-07-29 18:02] LABS: PLATELET COUNT 254 thou/uL (150-400)
[2017-07-29 18:11] LABS: CALCIUM 7.1 mg/dL (8.5-10.1); CREATININE 0.9 mg/dL (0.7-1.3); POTASSIUM 3.2 mmol/L (3.5-5.1)
[2017-07-29 18:17] LABS: ALBUMIN 1.1 g/dL (3.4-5.0); TOTAL BILIRUBIN 0.3 mg/dL (<0.1-1.0); TOTAL PROTEIN 5.2 g/dL (6.4-8.2)
[2017-07-29 18:21] LABS: APTT 37.3 Seconds (24.5-32.8); INR 1.5
[2017-07-29 18:25] LABS: ABSOLUTE NEUTROPHILS 13.8 thou/uL (1.4-8.2)
[2017-07-29 18:26] LABS: ANISOCYTOSIS 1+; FIBRINOGEN 538.5 mg/dL (210-360); HYPOCHROMASIA SLIGHT; MICROCYTES SLIGHT; POLYCHROMASIA SLIGHT
[2017-07-29 22:57] LABS: ANION GAP 9 mmol/L (7-16); CALCIUM 6.8 mg/dL (8.5-10.1); CHLORIDE 115 mmol/L (98-107); CO2 22 mmol/L (21-32); CREATININE 0.8 mg/dL (0.7-1.3); GLUCOSE 129 mg/dL (74-106); POTASSIUM 3.1 mmol/L (3.5-5.1); SODIUM 146 mmol/L (136-145)
[2017-07-29 23:23] LABS: BUN ND mg/dL (7-18)
[2017-07-30] VITALS (32 sets, daily range): BP systolic 60–196; BP diastolic 27–161
[2017-07-30 03:09] LABS: URINE BILIRUBIN NEGATIVE (Negative); URINE BLOOD 3+ (Negative); URINE CLARITY CLEAR; URINE COLOR YELLOW; URINE GLUCOSE-RANDOM* NEGATIVE (Negative); URINE KETONES TRACE (Negative); URINE LEUKOCYTES-REFLEX NEGATIVE (Negative); URINE NITRITE-REFLEX NEGATIVE (Negative); URINE PROTEIN (DIPSTICK) 1+ (Negative); URINE SPECIFIC GRAVITY >= 1.030 (1.005-1.035); URINE UROBILINOGEN 0.2 E.U./dl (0.2-1.0)
[2017-07-30 03:17] LABS: CALCIUM 6.6 mg/dL (8.5-10.1); CREATININE 0.7 mg/dL (0.7-1.3)
[2017-07-30 03:50] LABS: SQUAMOUS 0-3 Few /LPF (0-3); YEAST-REFLEX Present (None Seen)
[2017-07-30 03:51] LABS: BACTERIA-REFLEX 1-9 Few /HPF (None Seen); CASTS None Seen /LPF (None Seen); CRYSTALS None Seen /LPF (None Seen); URINE RBC 3-10 Few /HPF (0-2); URINE WBC-REFLEX 0-5 Rare /HPF (0-5)
[2017-07-30 05:09] LABS: BE(vivo) -6.6 mmol/L (-2 to +3); PCO2 27.4 mmHg (35.0-45.0); PO2 105.4 mmHg (80.0-100.0)
[2017-07-30 07:02] LABS: MCH 28.4 pg (26.0-34.0); MCHC 31.9 g/dL (28.0-37.0); PLATELET COUNT 183 thou/uL (150-400); RBC 2.17 mil/uL (4.50-6.00); RDW 16.3 % (10.5-14.5); WBC 12.5 thou/uL (4.0-11.0)
[2017-07-30 07:07] LABS: HEMATOCRIT 19.3 % (42.0-52.0); HEMOGLOBIN 6.2 gm/dL (14.0-18.0)
[2017-07-30 07:20] LABS: CALCIUM 6.9 mg/dL (8.5-10.1); CREATININE 0.8 mg/dL (0.7-1.3); POTASSIUM 3.3 mmol/L (3.5-5.1)
[2017-07-30 07:50] LABS: HEMATOCRIT 24.8 % (42.0-52.0)
[2017-07-30 07:55] LABS: ABSOLUTE NEUTROPHILS 11.5 thou/uL (1.4-8.2); ANISOCYTOSIS 1+
[2017-07-30 07:56] LABS: HYPOCHROMASIA 1+
[2017-07-31] VITALS (36 sets, daily range): BP systolic 98–214; BP diastolic 45–174
[2017-07-31 05:22] LABS: BE(vivo) -14.9 mmol/L (-2 to +3); HCO3 9.7 mmol/L (22.0-26.0); sO2 93.5 % (92.0-98.0)
[2017-07-31 05:24] LABS: PCO2 20.2 mmHg (35.0-45.0)
[2017-07-31 06:01] LABS: BASOPHILS 0.3 % (0.0-2.0); EOSINOPHILS 0.3 % (0.0-3.0); HEMOGLOBIN 8.5 gm/dL (14.0-18.0); LYMPHOCYTES 4.4 % (24.0-44.0); MCH 29.1 pg (26.0-34.0); MCHC 31.5 g/dL (28.0-37.0); MCV 92.5 fL (80.0-100.0); MONOCYTES 2.9 % (1.0-8.0); PLATELET COUNT 243 thou/uL (150-400); POLYS 92.1 % (36.0-66.0); RBC 2.92 mil/uL (4.50-6.00); RDW 17.5 % (10.5-14.5); WBC 17.4 thou/uL (4.0-11.0)
[2017-07-31 06:11] LABS: CALCIUM 7.3 mg/dL (8.5-10.1); CREATININE 0.8 mg/dL (0.7-1.3); POTASSIUM 3.9 mmol/L (3.5-5.1)
[2017-07-31 13:42] LABS: DIRECT BILIRUBIN < 0.1 mg/dL (<0.1-0.3); SGOT 30 U/L (15-37); SGPT 13 U/L (30-65); TOTAL BILIRUBIN 0.4 mg/dL (<0.1-1.0); TOTAL PROTEIN 5.2 g/dL (6.4-8.2)
[2017-07-31 16:01] LABS: BE(vivo) -9.9 mmol/L (-2 to +3); HCO3 13.7 mmol/L (22.0-26.0); PO2 107.6 mmHg (80.0-100.0); pH 7.392 (7.360-7.450)
[2017-07-31 16:02] LABS: PCO2 23.1 mmHg (35.0-45.0)
[2017-08-01] VITALS (44 sets, daily range): BP systolic 106–142; BP diastolic 55–93
[2017-08-01 03:15] LABS: ADENOVIRUS Negative (Negative); INFLUENZA A Negative (Negative); INFLUENZA B Negative (Negative); METAPNEUMOVIRUS Negative (Negative); PARAINFLUENZA 1 Negative (Negative); PARAINFLUENZA 2 Negative (Negative); PARAINFLUENZA 3 Negative (Negative); RHINOVIRUS Negative (Negative); RSV A Negative (Negative); RSV B Negative (Negative)
[2017-08-01 05:12] LABS: BE(vivo) -1.1 mmol/L (-2 to +3); HCO3 21.5 mmol/L (22.0-26.0); PCO2 28.2 mmHg (35.0-45.0); pH 7.501 (7.360-7.450); sO2 97.5 % (92.0-98.0)
[2017-08-01 15:05] LABS: HEMATOCRIT 22.5 % (42.0-52.0); HEMOGLOBIN 7.4 gm/dL (14.0-18.0); MCH 28.5 pg (26.0-34.0); MCHC 32.8 g/dL (28.0-37.0); RBC 2.6 mil/uL (4.50-6.00); RDW 16.1 % (10.5-14.5)
[2017-08-01 15:08] LABS: MCV 86.7 fL (80.0-100.0)
[2017-08-01 16:03] LABS: CALCIUM 7.2 mg/dL (8.5-10.1); CREATININE 0.7 mg/dL (0.7-1.3)
[2017-08-02] VITALS (31 sets, daily range): BP systolic 104–142; BP diastolic 52–102
[2017-08-02 05:29] LABS: BE(vivo) 0.9 mmol/L (-2 to +3); HCO3 23.4 mmol/L (22.0-26.0); PCO2 28.6 mmHg (35.0-45.0); PO2 76.7 mmHg (80.0-100.0); pH 7.531 (7.360-7.450); sO2 96.7 % (92.0-98.0)
[2017-08-02 05:32] LABS: HEMOGLOBIN 7.1 gm/dL (14.0-18.0); MCH 28.3 pg (26.0-34.0); MCHC 32.5 g/dL (28.0-37.0); MCV 87.3 fL (80.0-100.0); RBC 2.52 mil/uL (4.50-6.00); RDW 16.4 % (10.5-14.5); WBC 11.4 thou/uL (4.0-11.0)
[2017-08-02 05:46] LABS: CALCIUM 7.2 mg/dL (8.5-10.1); CREATININE 0.6 mg/dL (0.7-1.3); POTASSIUM 3.6 mmol/L (3.5-5.1)
[2017-08-03] VITALS (10 sets, daily range): BP systolic 111–161; BP diastolic 62–108
[2017-08-03 21:07] LABS: BE(vivo) 3.4 mmol/L (-2 to +3); HCO3 27.7 mmol/L (22.0-26.0); PCO2 41.4 mmHg (35.0-45.0); pH 7.444 (7.360-7.450); sO2 74.1 % (92.0-98.0)
[2017-08-03 21:08] LABS: PO2 37.8 mmHg (80.0-100.0)
[2017-08-04] VITALS (11 sets, daily range): BP systolic 112–128; BP diastolic 64–82
[2017-08-04 06:01] LABS: BE(vivo) 4.8 mmol/L (-2 to +3); HCO3 27.9 mmol/L (22.0-26.0); PCO2 34.6 mmHg (35.0-45.0); PO2 112.8 mmHg (80.0-100.0); pH 7.524 (7.360-7.450); sO2 98.5 % (92.0-98.0)
[2017-08-04 13:23] LABS: CREATININE 0.6 mg/dL (0.7-1.3); POTASSIUM 3.2 mmol/L (3.5-5.1)
[2017-08-04 13:24] LABS: CALCIUM 7.1 mg/dL (8.5-10.1)
[2017-08-05] VITALS (52 sets, daily range): BP systolic 99–147; BP diastolic 59–91
[2017-08-06] VITALS (24 sets, daily range): BP systolic 82–130; BP diastolic 54–91
[2017-08-06 09:43] LABS: BE(vivo) 3.3 mmol/L (-2 to +3); HCO3 27.3 mmol/L (22.0-26.0); pH 7.463 (7.360-7.450); sO2 90.7 % (92.0-98.0)
[2017-08-06 09:45] LABS: PO2 55.8 mmHg (80.0-100.0)
[2017-08-06 11:06] LABS: BE(vivo) 3.7 mmol/L (-2 to +3); HCO3 27.9 mmol/L (22.0-26.0); PCO2 40.1 mmHg (35.0-45.0); PO2 163.4 mmHg (80.0-100.0); sO2 99.2 % (92.0-98.0)
[2017-08-06 11:53] LABS: EOSINOPHILS 0.6 % (0.0-3.0)
[2017-08-06 12:05] LABS: CALCIUM 7.4 mg/dL (8.5-10.1); CREATININE 0.6 mg/dL (0.7-1.3); POTASSIUM 3.7 mmol/L (3.5-5.1)
[2017-08-06 12:06] LABS: ABSOLUTE NEUTROPHILS 8.1 thou/uL (1.4-8.2); BASOPHILS 0.3 % (0.0-2.0); LYMPHOCYTES 5.8 % (24.0-44.0); MCHC 32.8 g/dL (28.0-37.0); MCV 88.4 fL (80.0-100.0); MONOCYTES 1.4 % (1.0-8.0); PLATELET COUNT 168 thou/uL (150-400); POLYS 91.9 % (36.0-66.0); RDW 17.4 % (10.5-14.5); WBC 8.9 thou/uL (4.0-11.0)
[2017-08-06 12:21] LABS: HEMATOCRIT 19.4 % (42.0-52.0); HEMOGLOBIN 6.4 gm/dL (14.0-18.0)
[2017-08-07] VITALS (24 sets, daily range): BP systolic 90–118; BP diastolic 48–72
[2017-08-07 05:28] LABS: HEMATOCRIT 24.6 % (42.0-52.0); HEMOGLOBIN 8.2 gm/dL (14.0-18.0); MCH 29.4 pg (26.0-34.0); MCHC 33.2 g/dL (28.0-37.0); MCV 88.7 fL (80.0-100.0); RBC 2.77 mil/uL (4.50-6.00); WBC 8.7 thou/uL (4.0-11.0)
[2017-08-07 05:40] LABS: ALBUMIN 1.1 g/dL (3.4-5.0); CALCIUM 7.6 mg/dL (8.5-10.1); CREATININE 0.7 mg/dL (0.7-1.3); POTASSIUM 3.2 mmol/L (3.5-5.1); TOTAL BILIRUBIN 0.2 mg/dL (<0.1-1.0); TOTAL PROTEIN 4.9 g/dL (6.4-8.2)
[2017-08-08] VITALS (24 sets, daily range): BP systolic 83–126; BP diastolic 49–74
[2017-08-08 04:41] LABS: HEMATOCRIT 25.5 % (42.0-52.0); HEMOGLOBIN 8.6 gm/dL (14.0-18.0); MCH 29.9 pg (26.0-34.0); MCHC 33.5 g/dL (28.0-37.0); MCV 89.1 fL (80.0-100.0); RBC 2.86 mil/uL (4.50-6.00); RDW 16.4 % (10.5-14.5)
[2017-08-08 04:59] LABS: CALCIUM 7.5 mg/dL (8.5-10.1); CREATININE 0.6 mg/dL (0.7-1.3); POTASSIUM 4.2 mmol/L (3.5-5.1)
[2017-08-09] VITALS (24 sets, daily range): BP systolic 96–139; BP diastolic 51–78
[2017-08-09 04:42] LABS: BE(vivo) 4.9 mmol/L (-2 to +3); PCO2 35.5 mmHg (35.0-45.0); PO2 146.2 mmHg (80.0-100.0); pH 7.515 (7.360-7.450); sO2 99.1 % (92.0-98.0)
[2017-08-10] VITALS (19 sets, daily range): BP systolic 114–157; BP diastolic 54–97
[2017-08-10 04:53] LABS: HEMATOCRIT 29.1 % (42.0-52.0); HEMOGLOBIN 9.4 gm/dL (14.0-18.0); MCH 29.6 pg (26.0-34.0); MCHC 32.3 g/dL (28.0-37.0); MCV 91.9 fL (80.0-100.0); RBC 3.17 mil/uL (4.50-6.00); RDW 17.1 % (10.5-14.5); WBC 9.6 thou/uL (4.0-11.0)
[2017-08-10 05:11] LABS: CALCIUM 7.9 mg/dL (8.5-10.1); CREATININE 0.6 mg/dL (0.7-1.3); POTASSIUM 3.8 mmol/L (3.5-5.1)
[2017-08-10 12:21] LABS: BE(vivo) 3.7 mmol/L (-2 to +3); HCO3 26.8 mmol/L (22.0-26.0); PCO2 34.7 mmHg (35.0-45.0); PO2 94.9 mmHg (80.0-100.0); pH 7.505 (7.360-7.450); sO2 97.8 % (92.0-98.0)
[2017-08-11] VITALS (11 sets, daily range): BP systolic 99–126; BP diastolic 46–78
[2017-08-11 06:09] LABS: CALCIUM 7.8 mg/dL (8.5-10.1); CREATININE 0.6 mg/dL (0.7-1.3); POTASSIUM 3.4 mmol/L (3.5-5.1)
[2017-08-12] VITALS (22 sets, daily range): BP systolic 92–141; BP diastolic 53–94
[2017-08-12 06:10] LABS: CALCIUM 7.7 mg/dL (8.5-10.1); CREATININE 0.5 mg/dL (0.7-1.3); POTASSIUM 3.4 mmol/L (3.5-5.1)
[2017-08-13] VITALS (24 sets, daily range): BP systolic 105–133; BP diastolic 50–81
[2017-08-14] VITALS (24 sets, daily range): BP systolic 103–145; BP diastolic 56–82
[2017-08-15] VITALS (12 sets, daily range): BP systolic 107–138; BP diastolic 63–78
[2017-08-16 06:41] VITALS: BP 143/84
[2017-08-16 08:00] VITALS: BP 143/75
[2017-08-16 10:29] LABS: ABSOLUTE NEUTROPHILS 6.9 thou/uL (1.4-8.2); BASOPHILS 1.3 % (0.0-2.0); EOSINOPHILS 3.2 % (0.0-3.0); HEMATOCRIT 31.4 % (42.0-52.0); HEMOGLOBIN 10.1 gm/dL (14.0-18.0); LYMPHOCYTES 16.8 % (24.0-44.0); MCHC 32.3 g/dL (28.0-37.0); MONOCYTES 7.1 % (1.0-8.0); PLATELET COUNT 383 thou/uL (150-400); POLYS 71.6 % (36.0-66.0); RBC 3.49 mil/uL (4.50-6.00); RDW 16.6 % (10.5-14.5); WBC 9.6 thou/uL (4.0-11.0)
[2017-08-16 10:39] LABS: ALBUMIN 1.4 g/dL (3.4-5.0); CALCIUM 8.3 mg/dL (8.5-10.1); CREATININE 0.7 mg/dL (0.7-1.3); POTASSIUM 3.1 mmol/L (3.5-5.1); TOTAL BILIRUBIN 0.2 mg/dL (<0.1-1.0); TOTAL PROTEIN 5.7 g/dL (6.4-8.2)
[2017-08-16 16:00] VITALS: BP 147/89
[2017-08-16 23:03] LABS: URINE BILIRUBIN NEGATIVE (Negative); URINE BLOOD NEGATIVE (Negative); URINE CLARITY SL CLOUDY; URINE COLOR YELLOW; URINE GLUCOSE-RANDOM* NEGATIVE (Negative); URINE KETONES NEGATIVE (Negative); URINE LEUKOCYTES-REFLEX NEGATIVE (Negative); URINE NITRITE-REFLEX NEGATIVE (Negative); URINE PROTEIN (DIPSTICK) 1+ (Negative); URINE UROBILINOGEN 0.2 E.U./dl (0.2-1.0)
[2017-08-16 23:17] LABS: YEAST-REFLEX Present (None Seen)
[2017-08-16 23:18] LABS: BACTERIA-REFLEX 1-9 Few /HPF (None Seen); CASTS None Seen /LPF (None Seen); CRYSTALS None Seen /LPF (None Seen); SQUAMOUS None Seen /LPF (0-3); URINE RBC None Seen /HPF (0-2); URINE WBC-REFLEX 0-5 Rare /HPF (0-5)
[2017-08-17 04:57] VITALS: BP 153/52
[2017-08-17 09:01] VITALS: BP 130/65
[2017-08-17 16:57] VITALS: BP 139/70
[2017-08-17 19:14] VITALS: BP 133/80
[2017-08-17 22:20] VITALS: BP 138/84
[2017-08-18 04:45] VITALS: BP 123/67
[2017-08-18 07:18] LABS: HEMATOCRIT 27.4 % (42.0-52.0); HEMOGLOBIN 8.8 gm/dL (14.0-18.0); MCH 29.2 pg (26.0-34.0); MCV 91.3 fL (80.0-100.0); RDW 17.1 % (10.5-14.5); WBC 9.7 thou/uL (4.0-11.0)
[2017-08-18 07:24] LABS: CREATININE 0.6 mg/dL (0.7-1.3); POTASSIUM 3.9 mmol/L (3.5-5.1)
[2017-08-18 08:00] VITALS: BP 113/68
[2017-08-18 19:42] VITALS: BP 130/77
[2017-08-19 04:37] VITALS: BP 130/66
[2017-08-19 07:27] VITALS: BP 129/77
[2017-08-19] MEDS ORDERED: MSL20MG/ML PO (09:54)
[2017-08-19 15:14] VITALS: BP 138/84
== END 2017-08-19 16:30 | DRG 870 ==
LOC: ER 18:45 → EROBS 22:22 → ICU 22:22 → EROBS 07-29 00:26 → ICU 07-29 16:58 → 4S 08-15 15:07
PROVIDERS: Emergency Medicine; Internal Medicine; Internal Medicine Pulmonary Disease; Specialist
DX: A41.9 Sepsis, unspecified organism (principal); J96.01 Acute respiratory failure with hypoxia; E43 Unspecified severe protein-calorie malnutrition; G92 Toxic encephalopathy; J69.0 Pneumonitis due to inhalation of food and vomit; J15.212 Pneumonia due to Methicillin resistant Staphylococcus aureus; G81.91 Hemiplegia, unspecified affecting right dominant side; E87.0 Hyperosmolality and hypernatremia; B37.89 Other sites of candidiasis; I82.621 Acute embolism and thrombosis of deep veins of right upper extremity; E11.9 Type 2 diabetes mellitus without complications; E78.5 Hyperlipidemia, unspecified; I50.9 Heart failure, unspecified; F03.90 Unspecified dementia, unspecified severity, without behavioral disturbance, psychotic disturbance, mood disturbance, and anxiety; R65.20 Severe sepsis without septic shock; R13.12 Dysphagia, oropharyngeal phase; R41.0 Disorientation, unspecified; Z66 Do not resuscitate; D64.9 Anemia, unspecified; H60.02 Abscess of left external ear; Z79.899 Other long term (current) drug therapy; Z86.73 Personal history of transient ischemic attack (TIA), and cerebral infarction without residual deficits; Z79.4 Long term (current) use of insulin; Z68.21 Body mass index [BMI] 21.0-21.9, adult; Z79.82 Long term (current) use of aspirin
CPT/HCPCS: 10078; 10102; 27000